=== PATIENT | male | born 1955 | race Caucasian/White ===

== ENCOUNTER 2016-02-20 18:59 | Inpatient (IN) | payer MEDICARE, OTHER ==
[~2016-02-20] VITALS: Ht 182.9 cm; Wt 51.5 kg
[2016-02-20] MEDS: SALINE FLUSH 10 ML FLUSH SCH (01:35)
[2016-02-20] MEDS ORDERED: ALU/MAG/SIM 30 ML UDC PO PRN ×2 (19:05→23:50)
[2016-02-20] MEDS ORDERED: PHARMACY TO DOSE LEVAQUIN IV SCH (19:05)
[2016-02-20] MEDS ORDERED: BISACODYL EC 5 MG TAB PO PRN (19:05)
[2016-02-20] MEDS ORDERED: SALINE FLUSH 10 ML FLUSH PRN (19:05)
[2016-02-20] MEDS ORDERED: BISACODYL 10 MG SUPP RECTAL PRN (19:05)
[2016-02-20] MEDS ORDERED: MAG HYDROX 30 ML UDC PO PRN (19:05)
[2016-02-20 22:00] VITALS: BP_SYST 64; BP_SYST 68; RESP 20; TEMP 98.6; BMI 16.2
[2016-02-20] MEDS ORDERED: **NOTE TO NURSE XX SCH (22:29)
[2016-02-20] MEDS: DUONEB INH SCH (22:42)
[2016-02-20 22:44] VITALS: RESP 16
[2016-02-20] MEDS ORDERED: LEVOFLOXACIN 750 MG/150 ML 150 ML IV ONE (22:45)
[2016-02-20 23:45] VITALS: BP_SYST 76; BP_SYST 80; TEMP 97.5
[2016-02-20 23:46] VITALS: BP_SYST 86
[2016-02-20] MEDS ORDERED: PROMETHAZINE 25 MG SUPP RECTAL PRN (23:50)
[2016-02-20] MEDS ORDERED: PHARMACY TO DOSE VANCOMYCIN IV SCH (23:50)
[2016-02-20] MEDS ORDERED: PROMETHAZINE 25 MG TAB PO PRN (23:50)
[2016-02-21] VITALS (57 sets, daily range): BP systolic 69–114; RESP 13–28; TEMP 97.7–100.2; Ht 182.9 cm; Wt 51.5 kg
[2016-02-21] MEDS ORDERED: VANCOMYCIN 1,000 MG in SODIUM CHLORIDE 0.9% 250 ML IV ONE (00:40)
[2016-02-21] MEDS: Meropenem 500 MG in SODIUM CHLORIDE 0.9% 100 ML IV SCH ×3 (00:50→19:39)
[2016-02-21] MEDS ORDERED: PHARMACY TO DOSE IV SCH ×2 (01:20)
[2016-02-21] MEDS ORDERED: DUONEB INH PRN (03:20)
[2016-02-21] MEDS: DUONEB INH SCH ×6 (03:21→15:04)
[2016-02-21] MEDS: SODIUM CHLORIDE 0.9% FLUSH BAG 500 ML IV SCH (04:52)
[2016-02-21] MEDS ORDERED: PANTOPRAZOLE 40 MG TAB PO SCH (07:00)
[2016-02-21] MEDS: SALINE FLUSH 10 ML FLUSH SCH ×2 (07:56→20:00)
[2016-02-21] MEDS ORDERED: THIAMINE 100 MG TAB PO SCH (09:00)
[2016-02-21] MEDS ORDERED: MULTIVITS/MINERALS (THERAGRAN M) TAB PO SCH (09:00)
[2016-02-21] MEDS ORDERED: FOLIC ACID 1 MG TAB PO SCH (09:00)
[2016-02-21] MEDS: SODIUM CHLORIDE 0.9% 1,000 ML IV SCH ×2 (10:00→16:20)
[2016-02-21] MEDS: ENOXAPARIN 30 MG/0.3 ML SYR SUBQ SCH (10:01)
[2016-02-21] MEDS ORDERED: SODIUM CHLORIDE 0.9% 500 ML IV ONE (10:40)
[2016-02-21] MEDS ORDERED: FOLIC ACID INJ 1 MG in SODIUM CHLORIDE 0.9% 50 ML IV ONE (18:15)
[2016-02-21] MEDS: LACT RINGERS 1,000 ML IV SCH (19:39)
[2016-02-21] MEDS: NEB-NACL 3% 4 ML NEBU INH SCH ×2 (19:53→23:55)
[2016-02-21] MEDS: NEB-ALBUTEROL 2.5 MG/3 ML INH SCH ×2 (19:53→23:55)
[2016-02-21] MEDS ORDERED: LORAZEPAM 2 MG/ML VIAL IV ONE (21:15)
[2016-02-22] VITALS (34 sets, daily range): BP systolic 86–150; RESP 13–28; TEMP 98.5–99.6
[2016-02-22] MEDS: NEB-ALBUTEROL 2.5 MG/3 ML INH SCH ×6 (02:42→23:26)
[2016-02-22] MEDS: LACT RINGERS 1,000 ML IV SCH (05:32)
[2016-02-22] MEDS: SODIUM CHLORIDE 0.9% FLUSH BAG 500 ML IV SCH (05:32)
[2016-02-22] MEDS ORDERED: VANCOMYCIN 1,000 MG in SODIUM CHLORIDE 0.9% 250 ML IV ONE (05:50)
[2016-02-22] MEDS: NEB-NACL 3% 4 ML NEBU INH SCH ×4 (07:25→23:26)
[2016-02-22] MEDS ORDERED: ALU/MAG/SIM 30 ML UDC PO PRN (09:10)
[2016-02-22] MEDS: THIAMINE 100 MG TAB PO SCH (09:24)
[2016-02-22] MEDS: CHLORDIAZEPOXIDE 25 MG CAP PO PRN ×3 (09:25→16:37)
[2016-02-22] MEDS: FOLIC ACID 1 MG TAB PO SCH (09:25)
[2016-02-22] MEDS: MULTIVITS/MINERALS (THERAGRAN M) TAB PO SCH (09:25)
[2016-02-22] MEDS: Meropenem 500 MG in SODIUM CHLORIDE 0.9% 100 ML IV SCH ×2 (09:27→20:04)
[2016-02-22] MEDS: SALINE FLUSH 10 ML FLUSH SCH ×2 (09:29→20:00)
[2016-02-22] MEDS: ENOXAPARIN 30 MG/0.3 ML SYR SUBQ SCH (09:29)
[2016-02-22] MEDS: PANTOPRAZOLE 40 MG VIAL IV SCH (09:29)
[2016-02-22] MEDS: NICOTINE 14 MG/24 HR TDSY TRANSDERM SCH (15:55)
[2016-02-23] VITALS (25 sets, daily range): BP systolic 116–170; RESP 17–27; TEMP 98.9–99.5
[2016-02-23] MEDS: LACT RINGERS 1,000 ML IV SCH ×3 (01:54→22:50)
[2016-02-23] MEDS: SODIUM CHLORIDE 0.9% FLUSH BAG 500 ML IV SCH (05:07)
[2016-02-23] MEDS: NEB-ALBUTEROL 2.5 MG/3 ML INH SCH ×5 (06:49→23:45)
[2016-02-23] MEDS: NEB-NACL 3% 4 ML NEBU INH SCH ×4 (06:49→23:45)
[2016-02-23] MEDS: CHLORDIAZEPOXIDE 25 MG CAP PO PRN ×3 (08:48→17:00)
[2016-02-23] MEDS ORDERED: LEVOFLOXACIN 500 MG/100 ML 100 ML IV SCH (09:00)
[2016-02-23] MEDS: THIAMINE 100 MG TAB PO SCH (09:12)
[2016-02-23] MEDS: MULTIVITS/MINERALS (THERAGRAN M) TAB PO SCH (09:13)
[2016-02-23] MEDS: FOLIC ACID 1 MG TAB PO SCH (09:13)
[2016-02-23] MEDS: SALINE FLUSH 10 ML FLUSH SCH ×2 (09:14→20:04)
[2016-02-23] MEDS: PANTOPRAZOLE 40 MG VIAL IV SCH (09:14)
[2016-02-23] MEDS: NICOTINE 14 MG/24 HR TDSY TRANSDERM SCH (09:15)
[2016-02-23] MEDS: ENOXAPARIN 30 MG/0.3 ML SYR SUBQ SCH (09:15)
[2016-02-23] MEDS: Meropenem 500 MG in SODIUM CHLORIDE 0.9% 100 ML IV SCH (09:16)
[2016-02-23] MEDS: SODIUM CHLORIDE 0.9% IV SCH (20:04)
[2016-02-23] MEDS: MEROPENEM IV SCH (20:04)
[2016-02-24] VITALS (24 sets, daily range): BP systolic 116–141; RESP 15–34; TEMP 97.7–98.9
[2016-02-24] MEDS: CHLORDIAZEPOXIDE 25 MG CAP PO PRN ×3 (01:57→09:42)
[2016-02-24] MEDS: SODIUM CHLORIDE 0.9% FLUSH BAG 500 ML IV SCH (05:29)
[2016-02-24] MEDS: NEB-NACL 3% 4 ML NEBU INH SCH ×4 (06:03→23:18)
[2016-02-24] MEDS: NEB-ALBUTEROL 2.5 MG/3 ML INH SCH ×5 (06:03→23:18)
[2016-02-24] MEDS: PANTOPRAZOLE 40 MG VIAL IV SCH (08:16)
[2016-02-24] MEDS: MEROPENEM IV SCH (08:16)
[2016-02-24] MEDS: SODIUM CHLORIDE 0.9% IV SCH (08:16)
[2016-02-24] MEDS: ENOXAPARIN 30 MG/0.3 ML SYR SUBQ SCH (08:21)
[2016-02-24] MEDS: NICOTINE 14 MG/24 HR TDSY TRANSDERM SCH (08:22)
[2016-02-24] MEDS: SALINE FLUSH 10 ML FLUSH SCH ×2 (08:23→21:10)
[2016-02-24] MEDS ORDERED: PHARMACY TO DOSE MERREM IV SCH (09:20)
[2016-02-24] MEDS: MULTIVITS/MINERALS (THERAGRAN M) TAB PO SCH (09:41)
[2016-02-24] MEDS: THIAMINE 100 MG TAB PO SCH (09:42)
[2016-02-24] MEDS: FOLIC ACID 1 MG TAB PO SCH (09:42)
[2016-02-24] MEDS ORDERED: LEVOFLOXACIN 750 MG/150 ML 150 ML IV SCH (12:25)
[2016-02-24] MEDS ORDERED: LEVOFLOXACIN 750 MG/150 ML 150 ML IV ONE (12:25)
[2016-02-25 03:00] VITALS: BP_SYST 126; RESP 16; TEMP 97.5
[2016-02-25] MEDS: SODIUM CHLORIDE 0.9% FLUSH BAG 500 ML IV SCH (06:17)
[2016-02-25 07:42] VITALS: BP_SYST 136; RESP 18; TEMP 97.6
[2016-02-25] MEDS: NEB-ALBUTEROL 2.5 MG/3 ML INH SCH ×5 (08:07→22:34)
[2016-02-25] MEDS: NEB-NACL 3% 4 ML NEBU INH SCH ×4 (08:07→22:34)
[2016-02-25] MEDS: NICOTINE 14 MG/24 HR TDSY TRANSDERM SCH (08:22)
[2016-02-25] MEDS: MULTIVITS/MINERALS (THERAGRAN M) TAB PO SCH (08:23)
[2016-02-25] MEDS: THIAMINE 100 MG in SODIUM CHLORIDE 0.9% 50 ML IV SCH (08:23)
[2016-02-25] MEDS: THIAMINE 100 MG TAB PO SCH (08:23)
[2016-02-25] MEDS: SALINE FLUSH 10 ML FLUSH SCH ×2 (08:23→20:00)
[2016-02-25] MEDS: LEVOFLOXACIN 750 MG/150 ML 150 ML IV SCH (08:24)
[2016-02-25] MEDS: ENOXAPARIN 30 MG/0.3 ML SYR SUBQ SCH (08:25)
[2016-02-25] MEDS ORDERED: LACT RINGERS 1,000 ML IV SCH (11:55)
[2016-02-25 12:00] VITALS: BP_SYST 119; RESP 18; TEMP 97.7
[2016-02-25 16:27] VITALS: BP_SYST 123; RESP 18; TEMP 97.9
[2016-02-25 19:00] VITALS: BP_SYST 147; RESP 22
[2016-02-25 23:00] VITALS: BP_SYST 132; RESP 20; TEMP 98
[2016-02-26 03:00] VITALS: BP_SYST 135; RESP 20; TEMP 97.5
[2016-02-26] MEDS: NEB-ALBUTEROL 2.5 MG/3 ML INH SCH ×5 (06:00→22:36)
[2016-02-26] MEDS: NEB-NACL 3% 4 ML NEBU INH SCH ×4 (06:00→22:36)
[2016-02-26] MEDS: SODIUM CHLORIDE 0.9% FLUSH BAG 500 ML IV SCH (06:02)
[2016-02-26 07:49] VITALS: BP_SYST 134; RESP 20; TEMP 98.1
[2016-02-26] MEDS: MULTIVITS/MINERALS (THERAGRAN M) TAB PO SCH (09:13)
[2016-02-26] MEDS: NICOTINE 14 MG/24 HR TDSY TRANSDERM SCH (09:13)
[2016-02-26] MEDS: ENOXAPARIN 30 MG/0.3 ML SYR SUBQ SCH (09:14)
[2016-02-26] MEDS: SALINE FLUSH 10 ML FLUSH SCH ×2 (09:14→21:27)
[2016-02-26] MEDS: LEVOFLOXACIN 750 MG/150 ML 150 ML IV SCH (09:14)
[2016-02-26] MEDS: THIAMINE 100 MG in SODIUM CHLORIDE 0.9% 50 ML IV SCH (09:14)
[2016-02-26 11:54] VITALS: BP_SYST 137; RESP 20; TEMP 97.7; TEMP 98.7
[2016-02-26 19:10] VITALS: BP_SYST 124; RESP 20; TEMP 98
[2016-02-26 23:00] VITALS: BP_SYST 137; RESP 20; TEMP 97.5
[2016-02-27 03:30] VITALS: BP_SYST 138; RESP 22; TEMP 97.6
[2016-02-27] MEDS: SODIUM CHLORIDE 0.9% FLUSH BAG 500 ML IV SCH (06:47)
[2016-02-27] MEDS: NEB-NACL 3% 4 ML NEBU INH SCH ×4 (07:08→22:26)
[2016-02-27] MEDS: NEB-ALBUTEROL 2.5 MG/3 ML INH SCH ×5 (07:08→22:26)
[2016-02-27 07:44] VITALS: BP_SYST 155; RESP 20; TEMP 97.4
[2016-02-27] MEDS: LEVOFLOXACIN 750 MG/150 ML 150 ML IV SCH (08:59)
[2016-02-27] MEDS: THIAMINE 100 MG in SODIUM CHLORIDE 0.9% 50 ML IV SCH (08:59)
[2016-02-27] MEDS: SALINE FLUSH 10 ML FLUSH SCH ×2 (08:59→20:05)
[2016-02-27] MEDS: NICOTINE 14 MG/24 HR TDSY TRANSDERM SCH (09:00)
[2016-02-27] MEDS: ENOXAPARIN 30 MG/0.3 ML SYR SUBQ SCH (09:00)
[2016-02-27 15:31] VITALS: BP_SYST 129; RESP 20; TEMP 97.5
[2016-02-27 15:32] VITALS: RESP 20; TEMP 97.5
[2016-02-27 19:35] VITALS: BP_SYST 114; RESP 19; TEMP 97.4
[2016-02-27 23:42] VITALS: BP_SYST 131; RESP 18; TEMP 97.5
[2016-02-28 03:57] VITALS: BP_SYST 118; RESP 18; TEMP 97.6
[2016-02-28] MEDS: SODIUM CHLORIDE 0.9% FLUSH BAG 500 ML IV SCH (06:17)
[2016-02-28] MEDS: MICONAZOLE 2% PWD TOPICAL SCH ×3 (06:18→19:39)
[2016-02-28] MEDS: NEB-ALBUTEROL 2.5 MG/3 ML INH SCH ×5 (06:55→22:18)
[2016-02-28] MEDS: NEB-NACL 3% 4 ML NEBU INH SCH ×4 (06:55→22:18)
[2016-02-28 08:01] VITALS: BP_SYST 139; RESP 18; TEMP 97.7
[2016-02-28] MEDS: LEVOFLOXACIN 750 MG/150 ML 150 ML IV SCH (09:14)
[2016-02-28] MEDS: THIAMINE 100 MG in SODIUM CHLORIDE 0.9% 50 ML IV SCH (09:15)
[2016-02-28] MEDS: NICOTINE 14 MG/24 HR TDSY TRANSDERM SCH (09:16)
[2016-02-28] MEDS: ENOXAPARIN 30 MG/0.3 ML SYR SUBQ SCH (09:17)
[2016-02-28] MEDS: SALINE FLUSH 10 ML FLUSH SCH ×2 (09:17→19:39)
[2016-02-28 11:58] VITALS: BP_SYST 103; RESP 18; TEMP 97.3
[2016-02-28 19:00] VITALS: BP_SYST 126; RESP 18; TEMP 97.6
[2016-02-28] MEDS: OXYCODONE/APAP 5/325 TAB PO PRN (19:39)
[2016-02-28 23:00] VITALS: BP_SYST 126; RESP 18; TEMP 97.6
[2016-02-29 03:30] VITALS: BP_SYST 119; RESP 20; TEMP 97.9
[2016-02-29] MEDS: SODIUM CHLORIDE 0.9% FLUSH BAG 500 ML IV SCH (04:51)
[2016-02-29] MEDS: NEB-ALBUTEROL 2.5 MG/3 ML INH SCH ×5 (06:18→23:46)
[2016-02-29] MEDS: NEB-NACL 3% 4 ML NEBU INH SCH ×4 (06:18→23:46)
[2016-02-29 07:50] VITALS: BP_SYST 118; RESP 20; TEMP 97.4
[2016-02-29] MEDS: LEVOFLOXACIN 750 MG/150 ML 150 ML IV SCH (08:37)
[2016-02-29] MEDS: ENOXAPARIN 30 MG/0.3 ML SYR SUBQ SCH (08:38)
[2016-02-29] MEDS: SALINE FLUSH 10 ML FLUSH SCH ×2 (08:39→20:00)
[2016-02-29] MEDS: NICOTINE 14 MG/24 HR TDSY TRANSDERM SCH (09:00)
[2016-02-29] MEDS: MICONAZOLE 2% PWD TOPICAL SCH ×2 (10:14→21:00)
[2016-02-29] MEDS: THIAMINE 100 MG in SODIUM CHLORIDE 0.9% 50 ML IV SCH (10:37)
[2016-02-29 11:27] VITALS: BP_SYST 106; RESP 18; TEMP 97
[2016-02-29] MEDS: OXYCODONE/APAP 5/325 TAB PO PRN ×2 (13:39→19:45)
[2016-02-29 16:26] VITALS: BP_SYST 94; RESP 18; TEMP 97.3
[2016-02-29 19:58] VITALS: BP_SYST 100; RESP 18; TEMP 98
[2016-02-29 23:07] VITALS: BP_SYST 106; RESP 18; TEMP 98
[2016-03-01] VITALS (8 sets, daily range): BP systolic 80–121; RESP 14–18; TEMP 97.2–98.6
[2016-03-01] MEDS: OXYCODONE/APAP 5/325 TAB PO PRN ×4 (01:08→20:45)
[2016-03-01] MEDS: SODIUM CHLORIDE 0.9% FLUSH BAG 500 ML IV SCH (05:45)
[2016-03-01] MEDS: NEB-ALBUTEROL 2.5 MG/3 ML INH SCH ×4 (06:06→19:42)
[2016-03-01] MEDS: NEB-NACL 3% 4 ML NEBU INH SCH ×3 (06:06→19:42)
[2016-03-01] MEDS: SALINE FLUSH 10 ML FLUSH SCH ×2 (08:13→20:35)
[2016-03-01] MEDS: LEVOFLOXACIN 750 MG/150 ML 150 ML IV SCH (08:14)
[2016-03-01] MEDS: ENOXAPARIN 30 MG/0.3 ML SYR SUBQ SCH (08:15)
[2016-03-01] MEDS: MICONAZOLE 2% PWD TOPICAL SCH ×2 (08:15→20:35)
[2016-03-01] MEDS: NICOTINE 14 MG/24 HR TDSY TRANSDERM SCH (08:16)
[2016-03-02] MEDS: NEB-NACL 3% 4 ML NEBU INH SCH ×4 (00:30→20:00)
[2016-03-02 04:01] VITALS: BP_SYST 112; RESP 18; TEMP 97.1
[2016-03-02] MEDS: OXYCODONE/APAP 5/325 TAB PO PRN ×2 (04:36→16:57)
[2016-03-02] MEDS: SODIUM CHLORIDE 0.9% FLUSH BAG 500 ML IV SCH (05:28)
[2016-03-02] MEDS: NEB-ALBUTEROL 2.5 MG/3 ML INH SCH ×3 (06:53→20:00)
[2016-03-02 07:40] VITALS: BP_SYST 91; RESP 20; TEMP 97.7
[2016-03-02] MEDS: NICOTINE 14 MG/24 HR TDSY TRANSDERM SCH (09:00)
[2016-03-02] MEDS: SALINE FLUSH 10 ML FLUSH SCH ×2 (09:38→19:52)
[2016-03-02] MEDS: ENOXAPARIN 30 MG/0.3 ML SYR SUBQ SCH (09:38)
[2016-03-02] MEDS: MICONAZOLE 2% PWD TOPICAL SCH ×2 (09:39→19:52)
[2016-03-02 12:12] VITALS: BP_SYST 92; RESP 18; TEMP 97.6
[2016-03-02 15:15] VITALS: BP_SYST 108; RESP 18; TEMP 97.9
[2016-03-02 19:20] VITALS: BP_SYST 101; RESP 18; TEMP 97.4
[2016-03-02 22:54] VITALS: BP_SYST 101; RESP 18; TEMP 97.4
[2016-03-03] MEDS: NEB-NACL 3% 4 ML NEBU INH SCH ×3 (00:30→11:33)
[2016-03-03] MEDS: OXYCODONE/APAP 5/325 TAB PO PRN ×2 (01:08→09:27)
[2016-03-03 04:35] VITALS: BP_SYST 104; RESP 18; TEMP 97.6
[2016-03-03] MEDS: SODIUM CHLORIDE 0.9% FLUSH BAG 500 ML IV SCH (04:50)
[2016-03-03 07:09] VITALS: BP_SYST 102; RESP 20; TEMP 97.5
[2016-03-03] MEDS: NEB-ALBUTEROL 2.5 MG/3 ML INH SCH ×2 (07:34→11:33)
[2016-03-03] MEDS: NICOTINE 14 MG/24 HR TDSY TRANSDERM SCH (09:00)
[2016-03-03] MEDS: MICONAZOLE 2% PWD TOPICAL SCH (09:24)
[2016-03-03] MEDS: ENOXAPARIN 30 MG/0.3 ML SYR SUBQ SCH (09:26)
[2016-03-03] MEDS: SALINE FLUSH 10 ML FLUSH SCH (09:28)
[2016-03-03 11:53] VITALS: BP_SYST 88; RESP 20; TEMP 97.3
[2016-03-03 14:48] VITALS: BP_SYST 88; RESP 20; TEMP 97.2
[2016-03-03 14:57] VITALS: BP_SYST 88; RESP 20; TEMP 97.3
[2016-03-03 15:04] VITALS: BP_SYST 88; RESP 20; TEMP 97.3
== END 2016-03-03 15:46 | DRG 871 ==
LOC: ENRESERVDT → EDBD → EDUNIT# → ENRESERVTM → ENPENDDIS 22:04 → PCU2 22:04 → CCU 23:43 → PCU 02-24 23:47 → 3S 02-29 15:30 → 4NT 03-01 00:31
PROVIDERS: ADMIT Internal Medicine; ATTEND Internal Medicine
PROC: HZ2ZZZZ Detoxification Services for Substance Abuse Treatment (ICD-10-PCS; principal; 2016-02-20)
DX: A41.9 Sepsis, unspecified organism (principal); N17.0 Acute kidney failure with tubular necrosis; J96.01 Acute respiratory failure with hypoxia; R65.21 Severe sepsis with septic shock; E43 Unspecified severe protein-calorie malnutrition; G31.2 Degeneration of nervous system due to alcohol; J15.1 Pneumonia due to Pseudomonas; E87.1 Hypo-osmolality and hyponatremia; G72.41 Inclusion body myositis [IBM]; Z68.1 Body mass index [BMI] 19.9 or less, adult; F10.239 Alcohol dependence with withdrawal, unspecified; G30.9 Alzheimer's disease, unspecified; R13.10 Dysphagia, unspecified; G89.4 Chronic pain syndrome; E87.5 Hyperkalemia; I10 Essential (primary) hypertension; F02.80 Dementia in other diseases classified elsewhere, unspecified severity, without behavioral disturbance, psychotic disturbance, mood disturbance, and anxiety; E83.41 Hypermagnesemia; Z72.0 Tobacco use; R53.1 Weakness; D64.9 Anemia, unspecified; B37.2 Candidiasis of skin and nail
CPT/HCPCS: 36600; 71010; 74230; 80048; 80053; 80069; 80202; 81001; 82040; 82436; 82550; 82552; 82553; 82803; 82947; 83605; 83735; 83880; 84100; 84145; 84300; 84439; 84443; 84484; 85025; 85610; 85652; 86141; 87040; 87071; 87077; 87081; 87186; 87205; 87278; 87299; 87804; 93005; 93306; 94640; 94664; 94668; 94799; 99222; 99223; 99231; 99232; 99233; 99239; 99291